=== PATIENT | male | born 1965 | race Caucasian/White ===

== ENCOUNTER → 2020-06-06 11:44 | Outpatient (CLI) | payer OTHER, SELFPAY ==
--- NOTE | 2020-06-06 | DI.RAD.S_ITS ---
PROCEDURE: XR KNEE RT 3V INDICATIONS: RIGHT KNEE PAIN TECHNIQUE: 3 views of the knee were acquired. COMPARISON: None. FINDINGS: Bones: No fractures or dislocations. No suspicious bony lesions. Scattered degenerative subchondral sclerosis and spurring. 1 mm calcific focus projects at the medial aspect of the patellofemoral joint. Soft tissues: No joint effusion. No suspicious soft tissue calcifications. IMPRESSION: Mild right knee osteoarthritis Dictated by: Mikhail Early M.D. on 06/06/2020 at 13:52 Approved by: Mikhail Early M.D. on 06/06/2020 at 13:54
== END ==
PROVIDERS: PCP Family Medicine; Referring Provider Family Medicine; Visit Provider Family Medicine
DX: M25.561 Pain in right knee (principal); M17.11 Unilateral primary osteoarthritis, right knee
CPT/HCPCS: 73562

== ENCOUNTER → 2021-07-31 14:34 | Outpatient (CLI) | payer OTHER, SELFPAY ==
--- NOTE | 2021-07-31 14:39 | DI.RAD.S_ITS ---
PROCEDURE: XR KNEE LT 3V INDICATIONS: L posterior knee pain TECHNIQUE: 3 views of the knee were acquired. COMPARISON: None. FINDINGS: Bones: Cortical step-off at the posterior lateral left tibia. No dislocations. Quadriceps enthesophyte. No suspicious bony lesions. Soft tissues: A joint effusion is present. No suspicious soft tissue calcifications. IMPRESSION: Possible fracture at the posterior lateral proximal left tibia. Suprapatellar joint effusion. Consider further evaluation with MRI or CT. Dictated by: Scot Mcbride M.D. on 07/31/2021 at 13:53 Approved by: Scot Mcbride M.D. on 07/31/2021 at 13:57
== END ==
PROVIDERS: Referring Provider Nurse Practitioner; Visit Provider Nurse Practitioner
DX: M25.562 Pain in left knee (principal)
CPT/HCPCS: 73562

== ENCOUNTER → 2023-03-03 10:40 | Outpatient (CLI) | payer OTHER, SELFPAY ==
--- NOTE | 2023-03-03 10:43 | DIET.OUTPTC ---
Dietary Outpatient Consultation Note Consultation Date: 03/03/2023 57y M attending RD visit for help managing preDM (A1c 5.9) and HLD (LDL >230) recently started on a statin. Food Recall: wakes at 7am (7hrs/night) 1-2c coffee (black) eats breakfast 3/4 of the time when hungry B: yogurt, cottage cheese, cheerios and skim milk, toast c pb and jam, amharic muffin with egg garrido and cheese, sometimes an apple, 6oz OJ no snack L: leftovers- pasta, broccoli, cucumbers, pb and j with grapes, canned soup, nachos no snack or sometimes M&Ms D: beef soft tacos, adding veggies recently- salad c dressing, asparagus, broccoli, [employer] frozen meals like yakisoba, cheeseburger, chicken kebabs on grill, pizza, frozen lasagnas Sn: potato chips, Doritos, chips and salsa, ice cream bars ETOH: 2 beers or 2 mixed drinks per night, IPA, Rum and Diet Pepsi Theresa: water, [employer] oatmilk (16g CHO in 1c), Premier Protein Physical Activity: fairly active- hiking 3x/w for a few hours (4-7mi), skiing in winter, bike riding Nutrition Dx: altered nutrition related laboratory values (A1c, LDL) r/t food and nutrition knowledge deficit and undesirable food choices aeb A1c 5.9, LDL >230, pt with elevated intake refined carbohydrates and reliance on convenience foods. Interventions: 1. Educated pt on preDM, A1c, BG and role of regular physical activity and consistent carb intake in regulating. 2. Educated on carb counting using handout and reading food labels. Recc max 60g CHO at meals and 30g at snacks. 600mg sodium per meal. 3. Collaborated c pt on achievable changes to current eating pattern: pt to choose unsweetened oatmilk, swap regular cheerios for multigrain, pair protein with all meals and snacks, avoid eating refined carbs as island, add beans to icelandic food, walk 10-20 minutes on days not doing other physical activity. Monitoring/Evaluation: recc repeat labs in 3mo Electronically Signed by: Temitope Quintero 03/03/23 10:43 Clinical Dietitian [address] [id number]
== END ==
PROVIDERS: Absent Provider Family Medicine; Family Provider Family Medicine; PCP Family Medicine; Referring Provider Family Medicine; Visit Provider Family Medicine
DX: R73.03 Prediabetes (principal); E78.5 Hyperlipidemia, unspecified; Z71.3 Dietary counseling and surveillance
CPT/HCPCS: 97802